=== PATIENT | male | born 2000 | race Caucasian/White ===

== ENCOUNTER 2024-07-22 19:52 | Emergency (ER) | payer OTHER ==
[~2024-07-22] VITALS: Ht 177.8 cm; Wt 104.7 kg
[2024-07-22 19:54] VITALS: BP 176/86
[2024-07-22] MEDS ORDERED: IBUP-1022 PO (21:10)
[2024-07-22] MEDS: ACETAMINOPHEN 500 MG TAB PO ONE (21:15)
[2024-07-22 21:52] VITALS: TEMP 98.2; O2SAT 98
== END 2024-07-22 22:05 | disposition home or self-care (01) ==
LOC: M ED 19:52
DX: S06.0X0A Concussion without loss of consciousness, initial encounter (principal); S00.03XA Contusion of scalp, initial encounter; Y92.019 Unspecified place in single-family (private) house as the place of occurrence of the external cause; Y93.9 Activity, unspecified; Y99.9 Unspecified external cause status; W01.0XXA Fall on same level from slipping, tripping and stumbling without subsequent striking against object, initial encounter; Z79.1 Long term (current) use of non-steroidal anti-inflammatories (NSAID)